=== PATIENT | male | born 1945 | race Caucasian/White ===

== ENCOUNTER 2017-05-03 11:45 | Emergency (ER) | payer MEDICARE, MEDICAID ==
[2017-05-03 13:06] VITALS: BP 132/68
--- NOTE | 2017-05-03 13:44 | UC ---
Serafin Sanchez Angela, scribed for Bettie Christianson MD on 05/03/17 at 1325 . Skin Complaint HPI - HPI Summary HPI Summary: This pt is a 72 y/o male accompanied by caregiver presenting to [facility] c/o swollen upper lip upon waking up today (per caregiver). Pt also has scattered scabs on arms due to picking his own skin. Per caregiver, pt is eating and drinking well. Per caregiver, pt's upper lip was normal looking last night and there is no trauma that she knows of associated. Caregiver reports that pt often bites his lower lip and is swollen due to this. Caregiver denies pt has swallowing problems. Pt is from [employer]. Per caregiver, pt's medications are for behavior. Pt takes Tylenol TID. NKDA. HPI is limited due to level 5 caveat - pt has MR. - History of Current Complaint Chief Complaint: MARYLUkin Stated Complaint: SWOLLEN MOUTH Hx Obtained From: Family/Exploration Geologist - caregiver Hx From Patient Unobtainable Due To: Other - pt has MR Onset/Duration: Lasting Hours Skin Exposure Onset/Duration: Hours Ago Location: Other - upper lip Character: Swelling, Redness Associated Signs & Symptoms: Negative: Fever, Chills - Allergy/Home Medications Allergies/Adverse Reactions: Allergies Allergy/AdvReac Type Severity Reaction Status Date / Time No Known Allergies Allergy Verified 05/03/17 13:06 Home Medications: Home Medications Silver Sulfadiazine 1%* [SILVadine 1%*] 1 applic TOPICAL QID PRN 05/03/17 [ History Confirmed 05/03/17] Zinc Oxide (Topical) [Dr Torres Rash + Skin] 10 % TOPICAL PRN 05/03/17 [History] Review of Systems Constitutional: Negative, Other - eating and drinking well despite lip swelling. Skin: Other - swollen upper lip many areas on skin of forearms with deep crusts secondary to repeated picking. Eyes: Negative ENT: Negative Respiratory: Negative Cardiovascular: Negative Gastrointestinal: Negative Genitourinary: Negative Motor: Negative Neurovascular: Negative Musculoskeletal: Negative Neurological: Negative Psychological: Negative All Other Systems Reviewed And Are Negative: Yes - Comments Additional Review of Systems Comments: ROS is limited due to level 5 caveat - pt has MR. 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 ULCER SURGERY (MANY YRS AGO). HAS HAD BOTH FEMORS FX'D W/ PLATES. vagotomy/antrectomy. 2009 right hip. 2010 left hip. 2014 fx left metatarsal - Family History Known Family History: Positive: Unknown - due to being averbal, [facility] associated not aware of FH Family History: family history is unknown. patient is from [facility]. - Social History Occupation: Disabled Lives: [facility]iary Alcohol Use: None Substance Use Type: None Smoking Status (MU): Never Smoked Tobacco - Immunization History Most Recent Influenza Vaccination: 2015 Most Recent Tetanus Shot: 2009 Most Recent Pneumonia Vaccination: 2009 Physical Exam Triage Information Reviewed: Yes Appearance: Well-Nourished, Pain Distress - mildly uncomfortable., Other: - averbal. Vital Signs: Initial Vital Signs Temp 98.1 F 05/03/17 13:01 Resp 16 05/03/17 13:01 BP 132/68 05/03/17 13:01 Pulse Ox 100 05/03/17 13:01 Vital Signs Reviewed: Yes Eye Exam: Other - left ptosis (chronic) Eyes: Positive: Conjunctiva Clear ENT: Positive: Other: - upper lip swelling right > left with small hematoma on the right. Upper lip swelling to the nares. Upper lip mucosal membrane abraded over 2 cm x .5 cm area, with debris. Teeth with deep caries and gingival swelling. Dental: Positive: Gross Decay/Caries @ - throughout, many absent teeth. Neck: Positive: Supple, Nontender, No Lymphadenopathy Respiratory: Positive: Lungs clear, Normal breath sounds Cardiovascular: Positive: RRR, No Murmur Neurological Exam: Other - walker assisted gait. Neurological: Positive: Alert, Other: - averbal. Psychological Exam: Other - mildly irritable. Skin: Positive: Other - many crusts on both arms, no cellulitis. Course/Dx - Course Course Of Treatment: Pt is a 72 y/o male accompanied by caregiver presenting to [facility] c/o swollen upper lip upon waking up today (per caregiver). Pt medications reviewed this visit. - Differential Diagnoses - Skin Complaint Differential Diagnoses: Abscess, Allergic Reaction, Angioedema, Other - trauma/ hematoma - Diagnoses Provider Diagnoses: right upper lip hematoma, likely dental abscess. Discharge - Discharge Plan Condition: Stable Disposition: HOME Prescriptions: Penicillin VK 500 MG TAB(NF) [Penicillin VK 500 mg Tab] 500 mg PO QID #28 tab Patient Education Materials: Dental Abscess (ED) Referrals: Harriet Serrano MD [Primary Care Provider] - Additional Instructions: The upper lip swelling could be from trauma, and there is evidence of a hematoma in the lip. However, there is an area in the upper inner lip which is deeply abraded, and the condition of upper gums and teeth are poor, raising the likelihood of dental abscess and infection. Begin use of pen VK today. If at all possible, compress the upper lip with cool cloths or ice to decrease swelling. There should be some decrease in swelling within 48 hours, although I suspect that the hematoma will be slower to improve. Follow up if you are not seeing any improvement after 48 hours. The documentation as recorded by the Serafin lewis Angela accurately reflects the service I personally performed and the decisions made by me, Bettie Christianson MD.
== END 2017-05-03 13:41 | disposition home or self-care (01) ==
LOC: UCEAST 11:45
DX: S00.531A Contusion of lip, initial encounter (principal); X58.XXXA Exposure to other specified factors, initial encounter; Y93.9 Activity, unspecified; Y92.9 Unspecified place or not applicable; Y99.9 Unspecified external cause status
CPT/HCPCS: 99212; G0463

== ENCOUNTER 2017-08-02 12:36 | Emergency (ER) | payer MEDICARE, MEDICAID ==
--- NOTE | 2017-08-02 12:48 | UC ---
Skin Complaint HPI - HPI Summary HPI Summary: 72 year old male with skin concern . Swelling under L eye and L jaw starting this morning; per caregiver, swelling was worse this morning. Patient is non verbal. No other concerns. [ End ] - History of Current Complaint Time Seen by Provider: 08/02/17 12:46 Stated Complaint: SWOLLEN FACE Hx Obtained From: Family/Cardiology Nurse Practitioner Onset/Duration: Gradual Onset Timing: Constant Aggravating Factor(s): Nothing Alleviating Factor(s): Nothing - Allergy/Home Medications Allergies/Adverse Reactions: Allergies Allergy/AdvReac Type Severity Reaction Status Date / Time No Known Allergies Allergy Verified 08/02/17 12:49 Review of Systems Skin: Other - left lower eye lid redness and swelling Is Patient Immunocompromised?: No All Other Systems Reviewed And Are Negative: Yes PMH/Surg Hx/FS Hx/Imm Hx Previously Healthy: Yes Psychological History: Anxiety, Depression, Bipolar Disorder - Surgical History Surgical History: Yes Surgery Procedure, Year, and Place: right hip pinning. ULCER SURGERY (MANY YRS AGO). HAS HAD BOTH FEMORS FX'D W/ PLATES. vagotomy/antrectomy. 2009 right hip. 2010 left hip. 2014 fx left metatarsal - Family History Known Family History: Positive: Unknown - due to being averbal, [facility] associated not aware of FH Family History: family history is unknown. patient is from [facility]. - Social History Occupation: Unemployed Lives: Custodial Alcohol Use: None Substance Use Type: None Smoking Status (MU): Never Smoked Tobacco - Immunization History Most Recent Influenza Vaccination: 2015 Most Recent Tetanus Shot: 2009 Most Recent Pneumonia Vaccination: 2009 Physical Exam Triage Information Reviewed: Yes Appearance: Well-Appearing, No Pain Distress, Well-Nourished Vital Signs Reviewed: Yes Eye Exam: Normal Eyes: Positive: Conjunctiva Clear ENT: Positive: Hearing grossly normal Neck: Positive: 1 Respiratory Exam: Normal Cardiovascular Exam: Normal Musculoskeletal Exam: Normal Psychological Exam: Normal Skin Exam: Normal Skin: Positive: Other - left eye lid inferior with redness and swelling present with some erythema. not circumferential. mild upper eye lid swelling present . allergic shiner present as well Course/Dx - Course Course Of Treatment: Treat with antibiotics at this time. If redness spreads, fever develops, eye pain (hard to eval d/t pt non verbal) then to go to ED . In office setting he is moving eye without difficulty . Not circumferential just inferior aspect of eye lid / preseptal area - Diagnoses Provider Diagnoses: Preseptal cellulitis left eye Discharge - Discharge Plan Condition: Good Disposition: HOME Referrals: Harriet Serrano MD [Primary Care Provider] -
[2017-08-02 12:49] VITALS: BP 134/82
[2017-08-02] MEDS ORDERED: Clindamycin CAP* 150 MG PO ONE (13:05)
[2017-08-02] MEDS ORDERED: Clindamycin CAP* 150 MG ONE (13:09)
== END 2017-08-02 13:23 | disposition home or self-care (01) ==
LOC: UCEAST 12:36
DX: L03.213 Periorbital cellulitis (principal)
CPT/HCPCS: 99212; A9270-GY; G0463

== ENCOUNTER 2017-09-07 09:41 | Emergency (ER) | payer MEDICARE, MEDICAID ==
[2017-09-07 09:50] VITALS: BP 166/79
--- NOTE | 2017-09-07 10:33 | UC ---
Skin Complaint HPI - HPI Summary HPI Summary: Patient presents from alf with his home health aide present who provides the history. Patient has MR and does not communicate well. He has a nervous habit of picking at his skin, and does so mostly at night-time. He has been picking at his left upper arm, and now he has an open area, that is red, inflamed and they want it checked out. They do apply dressing but he takes them off as well. He is otherwise acting per his norm, no reported fevers, drainage from the open skin, signs of discomfort from staff. - History of Current Complaint Chief Complaint: UCSkin Time Seen by Provider: 09/07/17 10:13 Stated Complaint: SORE ON ARM Hx Obtained From: Family/Technical Support Internship Onset/Duration: Lasting Days Skin Exposure Onset/Duration: Days Ago Onset Severity: Mild Current Severity: Mild Pain Intensity: 0 Character: Redness Aggravating Factor(s): Nothing Alleviating Factor(s): Nothing Associated Signs & Symptoms: Positive: Negative - Allergy/Home Medications Allergies/Adverse Reactions: Allergies Allergy/AdvReac Type Severity Reaction Status Date / Time No Known Allergies Allergy Verified 09/07/17 09:50 Review of Systems Constitutional: Negative Skin: Other - open area of left upper arm, with increased redness today. no reported drainage. Eyes: Negative ENT: Negative Respiratory: Negative Cardiovascular: Negative Gastrointestinal: Negative Genitourinary: Negative Motor: Negative Neurovascular: Negative Musculoskeletal: Negative Neurological: Negative Psychological: Negative All Other Systems Reviewed And Are Negative: Yes PMH/Surg Hx/FS Hx/Imm Hx Previously Healthy: Yes - Surgical History Surgical History: Yes Surgery Procedure, Year, and Place: right hip pinning. ULCER SURGERY (MANY YRS AGO). HAS HAD BOTH FEMORS FX'D W/ PLATES. vagotomy/antrectomy. 2009 right hip. 2010 left hip. 2014 fx left metatarsal - Family History Known Family History: Positive: Unknown - due to being averbal, alf associated not aware of FH Family History: family history is unknown. patient is from [facility]. - Social History Occupation: Disabled Lives: Assisted Alcohol Use: None Substance Use Type: None Smoking Status (MU): Never Smoked Tobacco - Immunization History Most Recent Influenza Vaccination: 2016 Most Recent Tetanus Shot: 2009 Most Recent Pneumonia Vaccination: 2009 Physical Exam Triage Information Reviewed: Yes Appearance: Well-Appearing Vital Signs: Initial Vital Signs Temp 97.5 F 09/07/17 09:46 Pulse 86 09/07/17 09:46 Resp 18 09/07/17 09:46 BP 166/79 09/07/17 09:46 Pulse Ox 99 09/07/17 09:46 Vital Signs Reviewed: Yes Eye Exam: Normal ENT Exam: Normal Neck exam: Normal Neck: Positive: 1 Respiratory Exam: Normal Cardiovascular Exam: Normal Musculoskeletal Exam: Normal Neurological Exam: Normal Skin Exam: Other - left upper outter arm with a inflammed open area approximately 3.0 cm x 2.0 cm superfical involving the epithelial tissue only. no flucuance. no drainage noted. irregular borders. Course/Dx - Course Course Of Treatment: Patient presents with a PMH of MR and lives at a alf , he has a habit of picking at his skin and presents with a superficial open area on his left upper deltoid arm area. It appears inflamed and irriatated. I recommend they apply topical bacitacin three times daily and he will be given augmentin 500 mg twice daily for 10 days as well. I did recommend they try to keep it covered as well. The INSIDE STEWARD/STEWARDESS verbalized understanding of and was in agreement with the discharge plan. - Differential Diagnoses - Skin Complaint Differential Diagnoses: Other - acute wound cellulitis - Diagnoses Provider Diagnoses: acute wound. cellullitis Discharge - Discharge Plan Condition: Stable Disposition: HOME Prescriptions: Amoxicillin/Clavulanate TAB* [Augmentin TAB 500 mg*] 500 mg PO BID #20 tab Bacitracin OPHTH.OINT* 1 applic .SEE ORDER TID #1 oint Patient Education Materials: Wound Infection (DC), Cellulitis (DC), Acute Wound Care (ED) Referrals: Harriet Serrano MD [Primary Care Provider] -
== END 2017-09-07 10:41 | disposition home or self-care (01) ==
LOC: UCEAST 09:41
DX: L03.114 Cellulitis of left upper limb (principal)
CPT/HCPCS: 99211; G0463

== ENCOUNTER 2019-03-02 14:43 | Emergency (ER) | payer MEDICARE, MEDICAID ==
[2019-03-02 15:21] VITALS: BP 196/80
--- NOTE | 2019-03-02 15:27 | UC ---
Hand/Wrist HPI - HPI Summary HPI Summary: 73 yo male presents via tank erector. He is in a senior living and largely non- verbal. Tip Banding Machine Operator tells me that pt was at a day camp today and they noticed his right index finger was red, swollen, and hot - they were concerned and contacted the senior living's RN. The nurse examined the area and did not notice any redness, swelling, or warmth - but there was a slight bruise. Pt is here for further eval of the area. Has been acting his normal self and does not seem bothered by the area - per staff. - History Of Current Complaint Chief Complaint: UCUpperExtremity Stated Complaint: FINGER INJURY Time Seen by Provider: 03/02/19 15:26 Hx Obtained From: Family/Tip Banding Machine Operator Hx From Patient Unobtainable Due To: Altered Mental Status Severity Currently: None Pain Intensity: 0 - Allergies/Home Medications Allergies/Adverse Reactions: Allergies Allergy/AdvReac Type Severity Reaction Status Date / Time No Known Allergies Allergy Verified 03/02/19 15:21 Home Medications: Home Medications Calcium Carbonate/Vitamin D3 [Calcium 500 + Vit D Caplet] 1 tab PO DAILY [History Confirmed 03/02/19] PMH/Surg Hx/FS Hx/Imm Hx - Additional Past Medical History Additional PMH: Mentally disabled - Surgical History Surgical History: Yes Surgery Procedure, Year, and Place: right hip pinning. ULCER SURGERY (MANY YRS AGO). HAS HAD BOTH FEMORS FX'D W/ PLATES. vagotomy/antrectomy. 2009 right hip. 2010 left hip. 2014 fx left metatarsal - Family History Known Family History: Positive: Unknown - due to being averbal, senior living associated not aware of FH Family History: family history is unknown. patient is from senior living. - Social History Lives: Prison Alcohol Use: None Substance Use Type: None Smoking Status (MU): Never Smoked Tobacco - Immunization History Most Recent Influenza Vaccination: 2016 Most Recent Tetanus Shot: 2009 Most Recent Pneumonia Vaccination: 2009 Review of Systems All Other Systems Reviewed And Are Negative: Yes Constitutional: Positive: Negative Skin: Positive: Other - Right index finger bruise Respiratory: Positive: Negative Cardiovascular: Positive: Negative Musculoskeletal: Positive: Negative Neurological: Positive: Negative Psychological: Positive: Negative Physical Exam - Summary Physical Exam Summary: GENERAL: NAD. WDWN. No pain distress. SKIN: Right index finger: overlying the proximal phalanx there is a faint ecchymosis. No open wound, erythema, edema, or warmth. CHEST: No accessory muscle use. Breathing comfortably and in no distress. CV: Pulses intact radial and ulnar. Cap refill <2seconds MSK: FROM right index finger MCP, PIP, and DIP. Strength 5/5 including controls technician strength. Triage Information Reviewed: Yes Vital Signs: Initial Vital Signs Temp 98.4 F 03/02/19 15:15 Pulse 67 03/02/19 15:15 Resp 16 03/02/19 15:15 BP 196/80 03/02/19 15:15 Pulse Ox 98 03/02/19 15:15 Vital Signs Reviewed: Yes Hand/Wrist Course/Dx - Course Course Of Treatment: XR: IMPRESSION: 1. OSTEOPENIA. 2. 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 Pt does not seem bothered by this. Recommended to monitor the area, watchful waiting, and if symptoms worsen or change to be rechecked. I suspect this will resolve without intervention. - Differential Dx/Diagnosis Provider Diagnosis: Contusion, finger Discharge - Sign-Out/Discharge Documenting (check all that apply): Patient Departure All imaging exams completed and their final reports reviewed: Yes - Discharge Plan Condition: Stable Disposition: HOME Referrals: Harriet Serrano MD [Primary Care Provider] - Additional Instructions: If you develop a fever, shortness of breath, chest pain, new or worsening symptoms - please call your PCP or go to the ED immediately. Your blood pressure was high at todays visit. Please see your primary provider within 4 weeks for recheck and re-evaluation. The area on Prince's finger appears to be a mild bruise. He does not seem bothered by this and there are no signs of infection. Please monitor the area and if there are any changes such as increased warmth, redness, swelling, or pain to be rechecked - Billing Disposition and Condition Condition: STABLE Disposition: Home
== END 2019-03-02 16:08 | disposition home or self-care (01) ==
LOC: UCEAST 14:43
DX: S60.021A Contusion of right index finger without damage to nail, initial encounter (principal); X58.XXXA Exposure to other specified factors, initial encounter; Y92.9 Unspecified place or not applicable; F79 Unspecified intellectual disabilities
CPT/HCPCS: 73140; 99212; G0463

== ENCOUNTER 2023-08-05 07:55 | Inpatient (IN) ==
[2023-08-05] MEDS ORDERED: EPINEPHrine,Rac 2.25% NEB.SOL 0.5 ML ONE (08:02)
[2023-08-05] MEDS: Dexamethasone IV 4 MG/ML VIAL 1 ml VIAL IV SLOW PU ONE (08:09)
[2023-08-05 08:18] LABS: ABS Eosinophils 0.2 10^3/uL (0.0-0.5); ABS Lymphocytes 0.5 10^3/uL (1.0-4.8); ABS Monocytes 0.5 10^3/uL (0.0-1.1); ABS Neutrophils 5.6 10^3/uL (1.5-7.6); ABS Nucleated RBC 0.01 10^3/ul; Eosinophil % 3.1 %; Hematocrit 40.5 % (38-53); Hemoglobin 13.8 g/dL (13.2-16.3); Lymphocyte % 7.4 %; Mean Corpuscular Hemoglobin 31.7 pg (27-33); Mean Corpuscular Hgb Conc 34.1 g/dL (31-36); Mean Corpuscular Volume 92.9 fL (80-97); Mean Platelet Volume 7.4 fL (7.5-11.2); Nucleated Red Blood Cells % 0.1 %/100WBC (0.0-0.8); Platelet Count 349 10^3/uL (150-450); Red Blood Count 4.35 10^6/uL (4.06-5.63); Red Cell Distribution Width 13.8 % (12-17); White Blood Count 6.8 10^3/uL (3.6-10.2)
[2023-08-05] MEDS ORDERED: Acetylcysteine INH SOL (RT) 200 MG/ML 4 ML VIAL INH ONE (08:18)
[2023-08-05] MEDS ORDERED: Albuterol/Ipratropium NEB.SOL (2.5/0.5 MG) 3 ML NEB.SOLN ONE (08:18)
[2023-08-05] MEDS: Lactated Ringers 1000 ml BAG 1,000 ML IV ONE (08:26)
[2023-08-05] MEDS ORDERED: Propofol 10 mg/ml 100 ML BTL 0 MG/0 ML BTL ONE (08:33)
[2023-08-05] MEDS ORDERED: Succinylcholine 200 mg VIAL 20 mg/ml 10 ml VIAL (200 mg) ONE (08:33)
[2023-08-05] MEDS ORDERED: Rocuronium 50 mg VIAL 10 mg/ml 5 ml VIAL (50 mg) ONE (08:33)
[2023-08-05 08:50] LABS: ALT 22 U/L (7-52); Albumin 3.7 g/dL (3.2-5.2); Alkaline Phosphatase 278 U/L (35-149); Blood Urea Nitrogen 10 mg/dL (6-24); C Reactive Protein 60.69 mg/L (<8.01); CO2 Carbon Dioxide 28 mmol/L (22-32); Calcium 8.9 mg/dL (8.6-10.3); Chloride 94 mmol/L (101-111); Globulin 3.7 g/dL (2-4); Glucose 113 mg/dL (70-100); Sodium 130 mmol/L (135-145); Total Bilirubin 0.5 mg/dL (0.2-1.0); Total Protein 7.4 g/dL (6.4-8.9); eGFR CKD-EPI 104.4 (>60)
[2023-08-05 08:53] LABS: Anion Gap 8 mmol/L (2-16)
[2023-08-05] MEDS: Acetylcysteine INHALATION SOL 200 MG/ML NEB.SOLN 10 ML INH ONE (09:18)
[2023-08-05] MEDS: EPINEPHrine,Rac 2.25% NEB.SOL 0.5 ML INH ONE (09:18)
[2023-08-05] MEDS: Glycopyrrolate IV 0.2 MG/ML 20 ML VIAL IV SLOW PU ONE (09:40)
[2023-08-05] MEDS ORDERED: Lidocaine 1% VIAL 10 MG/ML 30 ML VIAL ONE (09:40)
[2023-08-05] MEDS ORDERED: Midazolam 2 mg/2 ml VIAL 1 mg/ml 2 ml VIAL (2 mg) ONE (10:08)
[2023-08-05] MEDS ORDERED: KETAMINE HCL 10 MG/ML 20 ml VIAL (200 MG) ONE (10:08)
[2023-08-05] MEDS ORDERED: Propofol 10 MG/ML 20 ML BTL ONE (10:09)
[2023-08-05] MEDS ORDERED: Lidocaine 2% PF 5 ML VIAL ONE (10:09)
[2023-08-05] MEDS ORDERED: Lidocaine 1% w EPI 1:200,000 SDV 30 ML VIAL ONE (10:24)
[2023-08-05] MEDS ORDERED: Phenylephrine 40 mcg/mL 10mL (400mcg) SYRINGE ONE (11:09)
[2023-08-05] MEDS: NS 0.9% 1000 ml BAG 1,000 ML IV SCH ×2 (12:12→22:41)
[2023-08-05 13:13] LABS: Urine Appearance Clear; Urine Bilirubin Negative (Negative); Urine Blood 1+ (Negative); Urine Color Straw; Urine Glucose Negative (Negative); Urine Ketones Negative (Negative); Urine Nitrite Negative (Negative); Urine Protein Negative (Negative); Urine Specific Gravity 1.005 (1.002-1.030); Urine Urobilinogen Negative (Negative)
[2023-08-05 13:25] LABS: Urine Bacteria 1+ (Absent); Urine Red Blood Cell 2+(6-10/hpf) (Absent); Urine White Blood Cell Trace(0-5/hpf) (Absent)
[2023-08-05] MEDS: Enoxaparin 40 MG/0.4 ML SYR SUBCUT SCH (14:38)
[2023-08-05] MEDS: Pantoprazole VIAL 40 MG VIAL IV SCH (14:38)
[2023-08-06] MEDS: Morphine 2 MG/ML SYRINGE IV PRN (02:42)
[2023-08-06] MEDS: Metoprolol Tartrate 5 mg VIAL 5 ml VIAL (1 mg/ml) IV PRN (02:53)
[2023-08-06] MEDS: Metoprolol Tartrate 5 mg VIAL 5 ml VIAL (1 mg/ml) ONE (03:16)
[2023-08-06] MEDS: Chlorhexidine MOUTHWASH 0.12% 15 ML UDC TOPICAL SCH (03:58)
[2023-08-06 04:57] LABS: ABS Lymphocytes 0.6 10^3/uL (1.0-4.8); ABS Monocytes 0.8 10^3/uL (0.0-1.1); ABS Neutrophils 7.4 10^3/uL (1.5-7.6); Eosinophil % 0.1 %; Hematocrit 33.3 % (38-53); Hemoglobin 11.2 g/dL (13.2-16.3); Lymphocyte % 6.3 %; Mean Corpuscular Hemoglobin 31.1 pg (27-33); Mean Corpuscular Hgb Conc 33.5 g/dL (31-36); Mean Corpuscular Volume 92.7 fL (80-97); Mean Platelet Volume 7.3 fL (7.5-11.2); Platelet Count 330 10^3/uL (150-450); Red Blood Count 3.59 10^6/uL (4.06-5.63); Red Cell Distribution Width 13.3 % (12-17); White Blood Count 8.8 10^3/uL (3.6-10.2)
[2023-08-06 05:13] LABS: Calcium 8.1 mg/dL (8.6-10.3); Creatinine, Serum 0.61 mg/dL (0.67-1.17); Magnesium 1.9 mg/dL (1.9-2.7); Potassium 4.1 mmol/L (3.5-5.0); Total Bilirubin 0.5 mg/dL (0.2-1.0); eGFR CKD-EPI 98.3 (>60)
[2023-08-06] MEDS: Polyethylene Glycol 3350 17 GM PACKET PO SCH (08:34)
[2023-08-07 04:36] LABS: ABS Basophils 0.1 10^3/uL (0.0-0.1); ABS Lymphocytes 0.6 10^3/uL (1.0-4.8); ABS Monocytes 0.7 10^3/uL (0.0-1.1); ABS Neutrophils 9.1 10^3/uL (1.5-7.6); Eosinophil % 0.1 %; Hematocrit 33.1 % (38-53); Hemoglobin 11.3 g/dL (13.2-16.3); Lymphocyte % 5.5 %; Mean Corpuscular Hemoglobin 31.5 pg (27-33); Mean Corpuscular Hgb Conc 34.1 g/dL (31-36); Mean Corpuscular Volume 92.2 fL (80-97); Mean Platelet Volume 7.3 fL (7.5-11.2); Platelet Count 281 10^3/uL (150-450); Red Blood Count 3.59 10^6/uL (4.06-5.63); Red Cell Distribution Width 13.8 % (12-17); White Blood Count 10.4 10^3/uL (3.6-10.2)
[2023-08-07 05:14] LABS: Creatinine, Serum 0.48 mg/dL (0.67-1.17); Potassium 3.7 mmol/L (3.5-5.0); eGFR CKD-EPI 105.7 (>60)
[2023-08-08 06:08] LABS: ABS Eosinophils 0.2 10^3/uL (0.0-0.5); ABS Lymphocytes 0.6 10^3/uL (1.0-4.8); ABS Monocytes 0.6 10^3/uL (0.0-1.1); ABS Neutrophils 8.4 10^3/uL (1.5-7.6); Eosinophil % 1.6 %; Hematocrit 34.3 % (38-53); Hemoglobin 11.4 g/dL (13.2-16.3); Lymphocyte % 6.2 %; Mean Corpuscular Hemoglobin 30.8 pg (27-33); Mean Corpuscular Hgb Conc 33.2 g/dL (31-36); Mean Platelet Volume 7.8 fL (7.5-11.2); Platelet Count 276 10^3/uL (150-450); Red Blood Count 3.69 10^6/uL (4.06-5.63); Red Cell Distribution Width 13.6 % (12-17); White Blood Count 9.8 10^3/uL (3.6-10.2)
[2023-08-08 06:27] LABS: Calcium 8.2 mg/dL (8.6-10.3); Creatinine, Serum 0.47 mg/dL (0.67-1.17); Potassium 3.8 mmol/L (3.5-5.0); eGFR CKD-EPI 106.4 (>60)
[2023-08-08] MEDS: cefTRIAXone 1 gm/50 mL D5W 1 GM/50 ML BAG IV SCH (11:39)
[2023-08-08] MEDS: Iohexol 350 (CONTRAST) 500 ML MDV IV ONE (18:23)
[2023-08-09] MEDS: NS 0.9% 500 ml BAG 500 ML IV ONE (01:15)
[2023-08-09 06:31] LABS: ABS Eosinophils 0.4 10^3/uL (0.0-0.5); ABS Lymphocytes 0.6 10^3/uL (1.0-4.8); ABS Monocytes 0.7 10^3/uL (0.0-1.1); ABS Neutrophils 7.3 10^3/uL (1.5-7.6); ABS Nucleated RBC 0.01 10^3/ul; Eosinophil % 4.3 %; Hematocrit 29.9 % (38-53); Lymphocyte % 6.2 %; Mean Corpuscular Hemoglobin 31.3 pg (27-33); Mean Corpuscular Hgb Conc 33.6 g/dL (31-36); Mean Corpuscular Volume 93.2 fL (80-97); Mean Platelet Volume 7.8 fL (7.5-11.2); Nucleated Red Blood Cells % 0.1 %/100WBC (0.0-0.8); Platelet Count 280 10^3/uL (150-450); Red Cell Distribution Width 13.7 % (12-17)
[2023-08-09 06:50] LABS: Albumin 2.6 g/dL (3.2-5.2); Albumin/Globulin Ratio 0.9 (1-3); Calcium 7.7 mg/dL (8.6-10.3); Creatinine, Serum 0.43 mg/dL (0.67-1.17); Potassium 3.8 mmol/L (3.5-5.0); Total Bilirubin 0.4 mg/dL (0.2-1.0); Total Protein 5.6 g/dL (6.4-8.9); eGFR CKD-EPI 109.3 (>60)
[2023-08-09] MEDS ORDERED: oxyCODONE 5 mg/5 ml ORAL.SOLN UDC PO PRN (15:18)
[2023-08-09] MEDS: oxyCODONE 5 mg/5 ml ORAL.SOLN UDC PO SCH (17:01)
[2023-08-09] MEDS: Citalopram SOLN ORALSYR 2 MG/ML G TUBE SCH (22:05)
[2023-08-10] MEDS: Polyethyl Glycol/Propylene Gly OPHTH.SOLN BOTH EYES SCH (17:32)
[2023-08-11 07:14] LABS: Mean Corpuscular Hgb Conc 33.4 g/dL (31-36); Mean Corpuscular Volume 92.8 fL (80-97); Mean Platelet Volume 7.8 fL (7.5-11.2); Platelet Count 338 10^3/uL (150-450); Red Blood Count 3.56 10^6/uL (4.06-5.63); Red Cell Distribution Width 13.5 % (12-17); White Blood Count 8.1 10^3/uL (3.6-10.2)
[2023-08-11 08:00] LABS: Calcium 7.8 mg/dL (8.6-10.3); Creatinine, Serum 0.47 mg/dL (0.67-1.17); Potassium 4.2 mmol/L (3.5-5.0); eGFR CKD-EPI 106.4 (>60)
[2023-08-11] MEDS ORDERED: diazePAM INJ CARPUJECT 5 MG/ML SYRINGE IV PRN (08:47)
[2023-08-12 09:36] LABS: Hematocrit 34.8 % (38-53); Hemoglobin 11.7 g/dL (13.2-16.3); Mean Corpuscular Hemoglobin 31.2 pg (27-33); Mean Corpuscular Hgb Conc 33.6 g/dL (31-36); Mean Corpuscular Volume 93.1 fL (80-97); Mean Platelet Volume 7.8 fL (7.5-11.2); Platelet Count 391 10^3/uL (150-450); Red Blood Count 3.74 10^6/uL (4.06-5.63); Red Cell Distribution Width 13.5 % (12-17); White Blood Count 7.8 10^3/uL (3.6-10.2)
[2023-08-12 09:56] LABS: Creatinine, Serum 0.52 mg/dL (0.67-1.17); Potassium 4.3 mmol/L (3.5-5.0); eGFR CKD-EPI 103.2 (>60)
[2023-08-12] MEDS: Midazolam 2 mg/2 ml VIAL 1 mg/ml 2 ml VIAL (2 mg) ONE (11:38)
[2023-08-12] MEDS: fentaNYL 100 mcg/2 ml 50 MCG/ML VIAL ONE (11:38)
[2023-08-13 05:41] LABS: ABS Eosinophils 0.3 10^3/uL (0.0-0.5); ABS Monocytes 0.8 10^3/uL (0.0-1.1); ABS Neutrophils 4.9 10^3/uL (1.5-7.6); Eosinophil % 4.7 %; Hematocrit 34.3 % (38-53); Hemoglobin 11.3 g/dL (13.2-16.3); Lymphocyte % 13.7 %; Mean Corpuscular Hemoglobin 30.8 pg (27-33); Mean Corpuscular Hgb Conc 32.9 g/dL (31-36); Mean Corpuscular Volume 93.5 fL (80-97); Mean Platelet Volume 8.6 fL (7.5-11.2); Nucleated Red Blood Cells % 0.1 %/100WBC (0.0-0.8); Platelet Count 421 10^3/uL (150-450); Red Blood Count 3.66 10^6/uL (4.06-5.63); Red Cell Distribution Width 13.6 % (12-17)
[2023-08-13 05:46] LABS: Albumin 2.8 g/dL (3.2-5.2); Albumin/Globulin Ratio 0.8 (1-3); Creatinine, Serum 0.5 mg/dL (0.67-1.17); Globulin 3.4 g/dL (2-4); Potassium 4.2 mmol/L (3.5-5.0); Total Bilirubin 0.5 mg/dL (0.2-1.0); Total Protein 6.2 g/dL (6.4-8.9); eGFR CKD-EPI 104.4 (>60)
[2023-08-15] MEDS: methylPREDNISolone SOD SUCC 40 mg/ml 1 ml VIAL IV ONE (02:25)
[2023-08-15 09:07] LABS: ABS Lymphocytes 0.3 10^3/uL (1.0-4.8); ABS Monocytes 0.2 10^3/uL (0.0-1.1); ABS Neutrophils 8.7 10^3/uL (1.5-7.6); Eosinophil % 0.1 %; Hematocrit 34.7 % (38-53); Hemoglobin 11.4 g/dL (13.2-16.3); Lymphocyte % 3.8 %; Mean Corpuscular Hemoglobin 30.9 pg (27-33); Mean Corpuscular Hgb Conc 32.7 g/dL (31-36); Mean Corpuscular Volume 94.4 fL (80-97); Mean Platelet Volume 7.7 fL (7.5-11.2); Platelet Count 471 10^3/uL (150-450); Red Blood Count 3.68 10^6/uL (4.06-5.63); Red Cell Distribution Width 13.5 % (12-17); White Blood Count 9.3 10^3/uL (3.6-10.2)
[2023-08-15 09:20] LABS: Albumin/Globulin Ratio 0.8 (1-3); Calcium 8.1 mg/dL (8.6-10.3); Creatinine, Serum 0.44 mg/dL (0.67-1.17); Globulin 3.6 g/dL (2-4); Magnesium 2.3 mg/dL (1.9-2.7); Potassium 4.6 mmol/L (3.5-5.0); Total Bilirubin 0.5 mg/dL (0.2-1.0); Total Protein 6.6 g/dL (6.4-8.9); eGFR CKD-EPI 108.5 (>60)
[2023-08-15] MEDS ORDERED: Triamcinolone Acetonide 40 mg VIAL 40 mg/ml 1 ml VIAL ONE (13:58)
[2023-08-15] MEDS ORDERED: Lidocaine 1% w EPI 1:200,000 SDV 30 ML VIAL ONE (13:59)
[2023-08-15] MEDS ORDERED: Midazolam 2 mg/2 ml VIAL 1 mg/ml 2 ml VIAL (2 mg) ONE (14:15)
[2023-08-15] MEDS ORDERED: fentaNYL 100 mcg/2 ml 50 MCG/ML VIAL ONE (14:15)
[2023-08-15] MEDS: Oral Rinse (Biotene)(NF) 237 ML or 473 ML ORAL RINSE BTL MT SCH (18:39)
[2023-08-16 06:17] LABS: ABS Eosinophils 0.1 10^3/uL (0.0-0.5); ABS Lymphocytes 0.6 10^3/uL (1.0-4.8); ABS Monocytes 0.8 10^3/uL (0.0-1.1); ABS Neutrophils 8.9 10^3/uL (1.5-7.6); Eosinophil % 0.8 %; Hematocrit 30.5 % (38-53); Hemoglobin 10.4 g/dL (13.2-16.3); Lymphocyte % 5.9 %; Mean Corpuscular Hemoglobin 31.9 pg (27-33); Mean Corpuscular Hgb Conc 34.2 g/dL (31-36); Mean Corpuscular Volume 93.4 fL (80-97); Mean Platelet Volume 8.2 fL (7.5-11.2); Platelet Count 498 10^3/uL (150-450); Red Blood Count 3.27 10^6/uL (4.06-5.63); Red Cell Distribution Width 13.5 % (12-17); White Blood Count 10.4 10^3/uL (3.6-10.2)
[2023-08-16 06:33] LABS: Calcium 7.9 mg/dL (8.6-10.3); Creatinine, Serum 0.47 mg/dL (0.67-1.17); Magnesium 2.3 mg/dL (1.9-2.7); Potassium 4.3 mmol/L (3.5-5.0); eGFR CKD-EPI 106.4 (>60)
[2023-08-16 06:47] LABS: TSH Ultra Thyroid Stim Horm 4.7 mcIU/mL (0.34-5.60)
[2023-08-16] MEDS: methylPREDNISolone SOD SUCC 40 mg/ml 1 ml VIAL IV ONE (17:45)
[2023-08-16] MEDS ORDERED: Lorazepam PYXIS KEY PRN (21:06)
[2023-08-17] MEDS: LORazepam 2 mg VIAL 1 ml IV PUSH PRN (05:17)
[2023-08-17 07:58] LABS: Hematocrit 33.4 % (38-53); Hemoglobin 10.9 g/dL (13.2-16.3); Mean Corpuscular Hemoglobin 30.5 pg (27-33); Mean Corpuscular Hgb Conc 32.7 g/dL (31-36); Mean Corpuscular Volume 93.4 fL (80-97); Mean Platelet Volume 7.7 fL (7.5-11.2); Platelet Count 550 10^3/uL (150-450); Red Blood Count 3.57 10^6/uL (4.06-5.63); Red Cell Distribution Width 13.5 % (12-17); White Blood Count 10.2 10^3/uL (3.6-10.2)
[2023-08-17 08:33] LABS: Calcium 7.9 mg/dL (8.6-10.3); Creatinine, Serum 0.46 mg/dL (0.67-1.17); Magnesium 2.2 mg/dL (1.9-2.7); Potassium 4.4 mmol/L (3.5-5.0); eGFR CKD-EPI 107.1 (>60)
[2023-08-18] MEDS: Acetaminophen IV 1 GM/100ML 1,000 MG/100 ML BAG IV PRN (15:58)
[2023-08-19 06:07] LABS: ABS Eosinophils 0.1 10^3/uL (0.0-0.5); ABS Lymphocytes 0.5 10^3/uL (1.0-4.8); ABS Monocytes 0.7 10^3/uL (0.0-1.1); ABS Neutrophils 7.6 10^3/uL (1.5-7.6); Eosinophil % 1.1 %; Hematocrit 30.7 % (38-53); Hemoglobin 10.5 g/dL (13.2-16.3); Lymphocyte % 5.3 %; Mean Corpuscular Hgb Conc 34.2 g/dL (31-36); Mean Corpuscular Volume 93.4 fL (80-97); Mean Platelet Volume 7.7 fL (7.5-11.2); Platelet Count 572 10^3/uL (150-450); Red Blood Count 3.29 10^6/uL (4.06-5.63); Red Cell Distribution Width 13.8 % (12-17); White Blood Count 8.9 10^3/uL (3.6-10.2)
[2023-08-19 06:27] LABS: Calcium 8.2 mg/dL (8.6-10.3); Creatinine, Serum 0.42 mg/dL (0.67-1.17); Magnesium 2.2 mg/dL (1.9-2.7); Phosphorus 3.1 mg/dL (2.5-5.0)
[2023-08-19] MEDS: NS 0.9% 500 ml BAG 500 ML IV ONE (12:15)
[2023-08-19] MEDS ORDERED: Zosyn per Pharmacy NOTE FOLLOW UP SCH (13:00)
[2023-08-19] MEDS ORDERED: Lorazepam PYXIS KEY PRN (13:30)
[2023-08-19] MEDS: NS 0.9% 1000 ml BAG 1,000 ML IV SCH (13:34)
[2023-08-19] MEDS: Piperacillin/Tazobac 3.375 BAG 3.375 GM/100 ML BAG IV ONE (13:50)
[2023-08-19] MEDS: LORazepam 2 mg VIAL 1 ml IV PUSH ONE (14:33)
[2023-08-19] MEDS: ZOSYN 3.375 GM Q8H per EXTENDED INFUSION IV SCH (18:03)
[2023-08-19 18:27] LABS: Urine Appearance Cloudy; Urine Bilirubin Negative (Negative); Urine Blood Negative (Negative); Urine Color Yellow; Urine Glucose Negative (Negative); Urine Ketones Trace (Negative); Urine Nitrite Negative (Negative); Urine Protein 1+(30 mg/dL) (Negative); Urine Specific Gravity 1.024 (1.002-1.030); Urine Urobilinogen Positive (Negative)
[2023-08-19 18:36] LABS: Urine Bacteria Absent (Absent); Urine Red Blood Cell 2+(6-10/hpf) (Absent); Urine White Blood Cell Absent (Absent)
[2023-08-20] MEDS: Midazolam 5 mg/5 ml VIAL 1 mg/ml 5 ml VIAL (5 mg) IV SLOW PU ONE (01:39)
[2023-08-20 02:06] LABS: Resp Rate 16
[2023-08-20 02:07] LABS: PCO2 Arterial 47 mmHg (35-45); PO2 Arterial 140 mmHg (80-100)
[2023-08-20] MEDS: Dexmedetomidine 1,000 MCG in NS 0.9% 250 ml 240 ML IV SCH (02:07)
[2023-08-20] MEDS: Midazolam 5 mg/5 ml VIAL 1 mg/ml 5 ml VIAL (5 mg) ONE (02:10)
[2023-08-20] MEDS ORDERED: Dexmedetomidine 1,000 MCG in NS 0.9% 250 ml 240 ML IV SCH (02:16)
[2023-08-20 02:18] LABS: Hematocrit 28.8 % (38-53); Hemoglobin 9.8 g/dL (13.2-16.3); Mean Corpuscular Hgb Conc 34.1 g/dL (31-36); Mean Platelet Volume 7.4 fL (7.5-11.2); Platelet Count 544 10^3/uL (150-450); Red Blood Count 3.07 10^6/uL (4.06-5.63); White Blood Count 9.1 10^3/uL (3.6-10.2)
[2023-08-20] MEDS: Furosemide 40 mg/4 ml IV VIAL IV ONE (02:26)
[2023-08-20 02:38] LABS: Albumin 2.7 g/dL (3.2-5.2); Albumin/Globulin Ratio 0.8 (1-3); Creatinine, Serum 0.5 mg/dL (0.67-1.17); Globulin 3.5 g/dL (2-4); Potassium 3.6 mmol/L (3.5-5.0); Total Bilirubin 0.5 mg/dL (0.2-1.0); Total Protein 6.2 g/dL (6.4-8.9); eGFR CKD-EPI 104.4 (>60)
[2023-08-20] MEDS: Chlorhexidine MOUTHWASH 0.12% 15 ML UDC TOPICAL SCH (03:12)
[2023-08-20] MEDS: Midazolam PREMIXBAG 1 MG/ML NS 100 ML IV SCH (04:20)
[2023-08-20] MEDS: Midazolam 2 mg/2 ml VIAL 1 mg/ml 2 ml VIAL (2 mg) IV SLOW PU PRN (04:54)
[2023-08-20 05:18] LABS: ABS Lymphocytes 0.4 10^3/uL (1.0-4.8); ABS Monocytes 0.5 10^3/uL (0.0-1.1); ABS Neutrophils 8.1 10^3/uL (1.5-7.6); Eosinophil % 0.4 %; Hematocrit 28.5 % (38-53); Hemoglobin 9.8 g/dL (13.2-16.3); Lymphocyte % 4.4 %; Mean Corpuscular Hemoglobin 32.2 pg (27-33); Mean Corpuscular Hgb Conc 34.6 g/dL (31-36); Mean Corpuscular Volume 93.1 fL (80-97); Mean Platelet Volume 7.8 fL (7.5-11.2); Platelet Count 558 10^3/uL (150-450); Red Blood Count 3.06 10^6/uL (4.06-5.63); Red Cell Distribution Width 13.9 % (12-17); White Blood Count 9.1 10^3/uL (3.6-10.2)
[2023-08-20 05:36] LABS: Calcium 8.1 mg/dL (8.6-10.3); Creatinine, Serum 0.43 mg/dL (0.67-1.17); Potassium 3.9 mmol/L (3.5-5.0); eGFR CKD-EPI 109.3 (>60)
[2023-08-20] MEDS: fentaNYL 100 mcg/2 ml 50 MCG/ML VIAL IV SLOW PU PRN (07:40)
[2023-08-20] MEDS: fentaNYL 100 mcg/2 ml 50 MCG/ML VIAL ONE (07:40)
[2023-08-20] MEDS: Midazolam 10 mg/10 ml VIAL 1 mg/ml 10 ml VIAL (10 mg) IV SLOW PU PRN (07:50)
[2023-08-20] MEDS: fentaNYL INFUSION 50 mcg/mL VL 2,500 MCG/50 ML VIAL IV SCH (07:58)
[2023-08-20] MEDS: Rocuronium 50 mg VIAL 10 mg/ml 5 ml VIAL (50 mg) IV ONE (08:05)
[2023-08-20] MEDS: Pantoprazole VIAL 40 MG VIAL IV SCH (09:02)
[2023-08-21 04:02] LABS: ABS Basophils 0.1 10^3/uL (0.0-0.1); ABS Eosinophils 0.2 10^3/uL (0.0-0.5); ABS Lymphocytes 0.8 10^3/uL (1.0-4.8); ABS Monocytes 0.5 10^3/uL (0.0-1.1); ABS Neutrophils 5.5 10^3/uL (1.5-7.6); ABS Nucleated RBC 0.01 10^3/ul; Eosinophil % 2.9 %; Hemoglobin 9.3 g/dL (13.2-16.3); Lymphocyte % 11.3 %; Mean Corpuscular Hgb Conc 34.5 g/dL (31-36); Mean Corpuscular Volume 92.8 fL (80-97); Mean Platelet Volume 7.3 fL (7.5-11.2); Nucleated Red Blood Cells % 0.1 %/100WBC (0.0-0.8); Platelet Count 513 10^3/uL (150-450); Red Blood Count 2.91 10^6/uL (4.06-5.63); White Blood Count 7.1 10^3/uL (3.6-10.2)
[2023-08-21 04:18] LABS: Calcium 7.7 mg/dL (8.6-10.3); Creatinine, Serum 0.49 mg/dL (0.67-1.17); Magnesium 2.1 mg/dL (1.9-2.7); Potassium 3.3 mmol/L (3.5-5.0)
[2023-08-21] MEDS: KCL 20 MEQ/100 ML IVPREMIX 20 MEQ/100 ML BAG IV SCH (04:31)
[2023-08-21] MEDS: KCL 20 MEQ/100 ML IVPREMIX 40 MEQ/200 ML BAG ONE (04:33)
[2023-08-22 04:18] LABS: ABS Eosinophils 0.4 10^3/uL (0.0-0.5); ABS Lymphocytes 0.5 10^3/uL (1.0-4.8); ABS Monocytes 0.6 10^3/uL (0.0-1.1); ABS Neutrophils 5.4 10^3/uL (1.5-7.6); Hematocrit 26.9 % (38-53); Hemoglobin 9.1 g/dL (13.2-16.3); Lymphocyte % 7.7 %; Mean Corpuscular Hemoglobin 31.9 pg (27-33); Mean Corpuscular Hgb Conc 33.9 g/dL (31-36); Mean Corpuscular Volume 94.2 fL (80-97); Mean Platelet Volume 7.4 fL (7.5-11.2); Platelet Count 473 10^3/uL (150-450); Red Blood Count 2.86 10^6/uL (4.06-5.63); Red Cell Distribution Width 14.4 % (12-17)
[2023-08-22 04:23] LABS: Calcium 7.3 mg/dL (8.6-10.3); Creatinine, Serum 0.48 mg/dL (0.67-1.17); Magnesium 1.9 mg/dL (1.9-2.7); Potassium 3.4 mmol/L (3.5-5.0); eGFR CKD-EPI 105.7 (>60)
[2023-08-22] MEDS: KCL 20 MEQ/100 ML IVPREMIX 20 MEQ/100 ML BAG IV SCH (04:30)
[2023-08-22] MEDS: KCL 20 MEQ/100 ML IVPREMIX 40 MEQ/200 ML BAG ONE (04:40)
[2023-08-23 04:49] LABS: ABS Basophils 0.1 10^3/uL (0.0-0.1); ABS Eosinophils 0.3 10^3/uL (0.0-0.5); ABS Lymphocytes 0.6 10^3/uL (1.0-4.8); ABS Monocytes 0.7 10^3/uL (0.0-1.1); ABS Neutrophils 6.2 10^3/uL (1.5-7.6); Eosinophil % 4.3 %; Hematocrit 29.1 % (38-53); Hemoglobin 9.8 g/dL (13.2-16.3); Mean Corpuscular Hemoglobin 31.4 pg (27-33); Mean Corpuscular Hgb Conc 33.5 g/dL (31-36); Mean Corpuscular Volume 93.7 fL (80-97); Mean Platelet Volume 7.5 fL (7.5-11.2); Platelet Count 424 10^3/uL (150-450); Red Cell Distribution Width 14.3 % (12-17)
[2023-08-23 05:05] LABS: Creatinine, Serum 0.47 mg/dL (0.67-1.17); Potassium 3.9 mmol/L (3.5-5.0); eGFR CKD-EPI 106.4 (>60)
[2023-08-24 04:30] LABS: ABS Basophils 0.1 10^3/uL (0.0-0.1); ABS Eosinophils 0.4 10^3/uL (0.0-0.5); ABS Lymphocytes 0.6 10^3/uL (1.0-4.8); ABS Monocytes 0.7 10^3/uL (0.0-1.1); ABS Neutrophils 6.2 10^3/uL (1.5-7.6); Eosinophil % 4.6 %; Hematocrit 28.2 % (38-53); Hemoglobin 9.6 g/dL (13.2-16.3); Mean Corpuscular Hemoglobin 31.9 pg (27-33); Mean Corpuscular Hgb Conc 34.2 g/dL (31-36); Mean Corpuscular Volume 93.3 fL (80-97); Mean Platelet Volume 7.6 fL (7.5-11.2); Nucleated Red Blood Cells % 0.1 %/100WBC (0.0-0.8); Platelet Count 389 10^3/uL (150-450); Red Blood Count 3.02 10^6/uL (4.06-5.63); Red Cell Distribution Width 14.3 % (12-17)
[2023-08-24 04:41] LABS: Calcium 7.8 mg/dL (8.6-10.3); Creatinine, Serum 0.48 mg/dL (0.67-1.17); Potassium 3.7 mmol/L (3.5-5.0); eGFR CKD-EPI 105.7 (>60)
[2023-08-24] MEDS: Potassium Chloride LIQUID 20 MEQ/15 ML LIQUID PO ONE (07:59)
[2023-08-25 04:50] LABS: ABS Eosinophils 0.4 10^3/uL (0.0-0.5); ABS Lymphocytes 0.5 10^3/uL (1.0-4.8); ABS Monocytes 0.6 10^3/uL (0.0-1.1); Eosinophil % 5.2 %; Hematocrit 28.1 % (38-53); Hemoglobin 9.5 g/dL (13.2-16.3); Lymphocyte % 6.9 %; Mean Corpuscular Hemoglobin 31.4 pg (27-33); Mean Corpuscular Hgb Conc 33.8 g/dL (31-36); Mean Corpuscular Volume 93.1 fL (80-97); Mean Platelet Volume 7.9 fL (7.5-11.2); Nucleated Red Blood Cells % 0.1 %/100WBC (0.0-0.8); Platelet Count 376 10^3/uL (150-450); Red Blood Count 3.02 10^6/uL (4.06-5.63); Red Cell Distribution Width 14.6 % (12-17); White Blood Count 7.5 10^3/uL (3.6-10.2)
[2023-08-25 05:19] LABS: Anion Gap 9 mmol/L (2-16); Blood Urea Nitrogen 15 mg/dL (6-24); CO2 Carbon Dioxide 28 mmol/L (22-32); Calcium 7.7 mg/dL (8.6-10.3); Chloride 100 mmol/L (101-111); Creatinine, Serum 0.53 mg/dL (0.67-1.17); Glucose 118 mg/dL (70-100); Sodium 137 mmol/L (135-145); eGFR CKD-EPI 102.6 (>60)
[2023-08-26 04:26] LABS: Hematocrit 23.1 % (38-53); Mean Corpuscular Hemoglobin 32.4 pg (27-33); Mean Corpuscular Hgb Conc 34.5 g/dL (31-36); Mean Corpuscular Volume 93.8 fL (80-97); Mean Platelet Volume 7.9 fL (7.5-11.2); Platelet Count 324 10^3/uL (150-450); Red Blood Count 2.47 10^6/uL (4.06-5.63); Red Cell Distribution Width 14.4 % (12-17); White Blood Count 8.1 10^3/uL (3.6-10.2)
[2023-08-26 04:36] LABS: INR 1.3 (0.83-1.13)
[2023-08-26 04:47] LABS: Anion Gap 9 mmol/L (2-16); Blood Urea Nitrogen 11 mg/dL (6-24); CO2 Carbon Dioxide 27 mmol/L (22-32); Calcium 7.3 mg/dL (8.6-10.3); Chloride 102 mmol/L (101-111); Creatinine, Serum 0.38 mg/dL (0.67-1.17); Glucose 95 mg/dL (70-100); Sodium 138 mmol/L (135-145); eGFR CKD-EPI 113.4 (>60)
[2023-08-26 05:33] LABS: ABS Eosinophils 0.4 10^3/uL (0.0-0.5); ABS Lymphocytes 0.7 10^3/uL (1.0-4.8); ABS Monocytes 0.7 10^3/uL (0.0-1.1); ABS Neutrophils 6.3 10^3/uL (1.5-7.6); Burr Cells 1+; Eosinophil % 4.4 %; Lymphocyte % 8.1 %
[2023-08-27 04:37] LABS: ABS Eosinophils 0.3 10^3/uL (0.0-0.5); ABS Lymphocytes 0.5 10^3/uL (1.0-4.8); ABS Monocytes 0.7 10^3/uL (0.0-1.1); ABS Neutrophils 5.9 10^3/uL (1.5-7.6); Eosinophil % 4.7 %; Hematocrit 28.5 % (38-53); Hemoglobin 9.6 g/dL (13.2-16.3); Lymphocyte % 7.1 %; Mean Corpuscular Hemoglobin 31.5 pg (27-33); Mean Corpuscular Hgb Conc 33.8 g/dL (31-36); Mean Corpuscular Volume 93.3 fL (80-97); Mean Platelet Volume 8.1 fL (7.5-11.2); Platelet Count 379 10^3/uL (150-450); Red Blood Count 3.05 10^6/uL (4.06-5.63); Red Cell Distribution Width 14.6 % (12-17); White Blood Count 7.4 10^3/uL (3.6-10.2)
[2023-08-27 04:51] LABS: Calcium 8.2 mg/dL (8.6-10.3); Creatinine, Serum 0.45 mg/dL (0.67-1.17); Magnesium 2.2 mg/dL (1.9-2.7); eGFR CKD-EPI 107.8 (>60)
[2023-08-27] MEDS: Metoprolol Tartrate 5 mg VIAL 5 ml VIAL (1 mg/ml) IV ONE (23:09)
[2023-08-28 11:55] LABS: C Reactive Protein 106.38 mg/L (<8.01)
[2023-08-30 06:47] LABS: Hematocrit 29.8 % (38-53); Mean Corpuscular Hemoglobin 31.4 pg (27-33); Mean Corpuscular Hgb Conc 33.4 g/dL (31-36); Mean Corpuscular Volume 93.9 fL (80-97); Platelet Count 332 10^3/uL (150-450); Red Blood Count 3.17 10^6/uL (4.06-5.63); Red Cell Distribution Width 14.4 % (12-17); White Blood Count 7.7 10^3/uL (3.6-10.2)
[2023-08-30 07:32] LABS: Calcium 7.8 mg/dL (8.6-10.3); Creatinine, Serum 0.37 mg/dL (0.67-1.17); eGFR CKD-EPI 114.3 (>60)
[2023-08-31] MEDS ORDERED: Senna TAB 8.6 mg TAB G TUBE PRN (05:47)
[2023-09-01] MEDS: Magnesium Hydroxide LIQ 30 ML UDC G TUBE PRN (00:51)
[2023-09-01] MEDS: Docusate LIQ 100 MG/10 ML UDC G TUBE PRN (00:51)
[2023-09-01 06:02] LABS: ABS Eosinophils 0.3 10^3/uL (0.0-0.5); ABS Lymphocytes 0.5 10^3/uL (1.0-4.8); ABS Monocytes 0.7 10^3/uL (0.0-1.1); ABS Neutrophils 4.9 10^3/uL (1.5-7.6); Eosinophil % 4.5 %; Hematocrit 28.5 % (38-53); Hemoglobin 9.5 g/dL (13.2-16.3); Lymphocyte % 8.3 %; Mean Corpuscular Hemoglobin 31.3 pg (27-33); Mean Corpuscular Hgb Conc 33.4 g/dL (31-36); Mean Corpuscular Volume 93.8 fL (80-97); Mean Platelet Volume 8.1 fL (7.5-11.2); Platelet Count 374 10^3/uL (150-450); Red Blood Count 3.04 10^6/uL (4.06-5.63); Red Cell Distribution Width 14.2 % (12-17); White Blood Count 6.4 10^3/uL (3.6-10.2)
[2023-09-01 06:14] LABS: C Reactive Protein 105.07 mg/L (<8.01); Creatinine, Serum 0.38 mg/dL (0.67-1.17); Potassium 4.1 mmol/L (3.5-5.0); eGFR CKD-EPI 113.4 (>60)
[2023-09-01] MEDS ORDERED: Labetalol IV 5 MG/ML 20 ml VIAL ONE (13:20)
[2023-09-01] MEDS ORDERED: Naloxone 0.4 mg VIAL 0.4 mg/ml 1 ml VIAL IV PRN (13:51)
[2023-09-01] MEDS ORDERED: HYDROmorphone 1 MG/1 ML SYRINGE IV PRN (13:51)
[2023-09-01] MEDS: Acetaminophen IV 1 GM/100ML 1,000 MG/100 ML BAG IV ONE (16:42)
[2023-09-01] MEDS ORDERED: Albuterol/Ipratropium NEB.SOL (2.5/0.5 MG) 3 ML NEB.SOLN INH SCH (18:00)
[2023-09-01] MEDS ORDERED: Albuterol/Ipratropium NEB.SOL (2.5/0.5 MG) 3 ML NEB.SOLN INH PRN (18:00)
[2023-09-02 05:36] LABS: ABS Eosinophils 0.2 10^3/uL (0.0-0.5); ABS Lymphocytes 0.4 10^3/uL (1.0-4.8); ABS Monocytes 0.5 10^3/uL (0.0-1.1); ABS Neutrophils 5.1 10^3/uL (1.5-7.6); Eosinophil % 3.7 %; Hematocrit 26.9 % (38-53); Lymphocyte % 6.8 %; Mean Corpuscular Hemoglobin 31.3 pg (27-33); Mean Corpuscular Hgb Conc 33.6 g/dL (31-36); Mean Corpuscular Volume 93.1 fL (80-97); Mean Platelet Volume 7.8 fL (7.5-11.2); Platelet Count 359 10^3/uL (150-450); Red Blood Count 2.89 10^6/uL (4.06-5.63); Red Cell Distribution Width 14.4 % (12-17); White Blood Count 6.4 10^3/uL (3.6-10.2)
[2023-09-02 05:50] LABS: Calcium 7.6 mg/dL (8.6-10.3); Creatinine, Serum 0.43 mg/dL (0.67-1.17); Potassium 3.9 mmol/L (3.5-5.0); eGFR CKD-EPI 109.3 (>60)
[2023-09-02] MEDS ORDERED: Albuterol/Ipratropium NEB.SOL (2.5/0.5 MG) 3 ML NEB.SOLN INH PRN (10:37)
[2023-09-02] MEDS ORDERED: Polyethylene Glycol 3350 17 GM PACKET PO PRN (10:58)
[2023-09-02] MEDS ORDERED: Albuterol/Ipratropium NEB.SOL (2.5/0.5 MG) 3 ML NEB.SOLN INH SCH (13:00)
[2023-09-02] MEDS: Enoxaparin 40 MG/0.4 ML SYR SUBCUT SCH (20:57)
[2023-09-03] MEDS: cefTRIAXone 1 gm/50 mL D5W 1 GM/50 ML BAG IV SCH (10:08)
[2023-09-03] MEDS: DOXYcycline 100 MG in NS 0.9% 250 ml 250 ML IVPB SCH (11:10)
[2023-09-05 06:08] LABS: ABS Basophils 0.1 10^3/uL (0.0-0.1); ABS Eosinophils 0.1 10^3/uL (0.0-0.5); ABS Lymphocytes 0.7 10^3/uL (1.0-4.8); ABS Monocytes 0.5 10^3/uL (0.0-1.1); ABS Nucleated RBC 0.01 10^3/ul; Eosinophil % 1.6 %; Hematocrit 31.4 % (38-53); Hemoglobin 10.6 g/dL (13.2-16.3); Lymphocyte % 8.7 %; Mean Corpuscular Hemoglobin 31.3 pg (27-33); Mean Corpuscular Hgb Conc 33.8 g/dL (31-36); Mean Corpuscular Volume 92.6 fL (80-97); Mean Platelet Volume 8.2 fL (7.5-11.2); Nucleated Red Blood Cells % 0.1 %/100WBC (0.0-0.8); Platelet Count 433 10^3/uL (150-450); Red Blood Count 3.39 10^6/uL (4.06-5.63); Red Cell Distribution Width 14.4 % (12-17); White Blood Count 8.4 10^3/uL (3.6-10.2)
[2023-09-05 06:27] LABS: Calcium 8.2 mg/dL (8.6-10.3); Creatinine, Serum 0.35 mg/dL (0.67-1.17); Magnesium 2.1 mg/dL (1.9-2.7); eGFR CKD-EPI 116.3 (>60)
[2023-09-06] MEDS: methylPREDNISolone SOD SUCC 125 mg 2 ML VIAL IV ONE (13:15)
[2023-09-06] MEDS: Furosemide 20 mg/2 ml IV VIAL IV ONE (13:20)
[2023-09-06] MEDS: Albuterol/Ipratropium NEB.SOL (2.5/0.5 MG) 3 ML NEB.SOLN INH PRN (13:33)
[2023-09-06] MEDS: EPINEPHrine,Rac 2.25% NEB.SOL 0.5 ML INH ONE (13:34)
[2023-09-06] MEDS: Albuterol/Ipratropium NEB.SOL (2.5/0.5 MG) 3 ML NEB.SOLN ONE (13:34)
[2023-09-06] MEDS: methylPREDNISolone SOD SUCC 125 mg 2 ML VIAL ONE (14:14)
[2023-09-06] MEDS: Morphine 4 MG/ML VIAL (1 ml) ONE (14:20)
[2023-09-06] MEDS: Furosemide 20 mg/2 ml IV VIAL IV SCH (17:56)
[2023-09-06] MEDS: methylPREDNISolone SOD SUCC 40 mg/ml 1 ml VIAL IV SCH (17:56)
[2023-09-07 06:54] LABS: ABS Lymphocytes 0.5 10^3/uL (1.0-4.8); ABS Monocytes 0.3 10^3/uL (0.0-1.1); ABS Neutrophils 5.8 10^3/uL (1.5-7.6); ABS Nucleated RBC 0.01 10^3/ul; Hematocrit 34.9 % (38-53); Hemoglobin 11.7 g/dL (13.2-16.3); Lymphocyte % 7.3 %; Mean Corpuscular Hemoglobin 31.1 pg (27-33); Mean Corpuscular Hgb Conc 33.6 g/dL (31-36); Mean Corpuscular Volume 92.5 fL (80-97); Mean Platelet Volume 7.9 fL (7.5-11.2); Nucleated Red Blood Cells % 0.1 %/100WBC (0.0-0.8); Platelet Count 529 10^3/uL (150-450); Red Blood Count 3.77 10^6/uL (4.06-5.63); Red Cell Distribution Width 14.3 % (12-17); White Blood Count 6.6 10^3/uL (3.6-10.2)
[2023-09-07 07:10] LABS: Calcium 8.7 mg/dL (8.6-10.3); Creatinine, Serum 0.47 mg/dL (0.67-1.17); Magnesium 2.1 mg/dL (1.9-2.7); Phosphorus 3.1 mg/dL (2.5-5.0); Potassium 4.3 mmol/L (3.5-5.0); eGFR CKD-EPI 106.4 (>60)
[2023-09-07] MEDS: Furosemide 20 mg/2 ml IV VIAL IV SCH (21:11)
[2023-09-08 06:12] LABS: ABS Basophils 0.1 10^3/uL (0.0-0.1); ABS Lymphocytes 0.5 10^3/uL (1.0-4.8); ABS Monocytes 0.4 10^3/uL (0.0-1.1); ABS Neutrophils 11.1 10^3/uL (1.5-7.6); Hematocrit 33.9 % (38-53); Hemoglobin 11.2 g/dL (13.2-16.3); Lymphocyte % 3.8 %; Mean Corpuscular Hemoglobin 30.8 pg (27-33); Mean Corpuscular Hgb Conc 33.2 g/dL (31-36); Mean Corpuscular Volume 92.8 fL (80-97); Platelet Count 502 10^3/uL (150-450); Red Blood Count 3.66 10^6/uL (4.06-5.63); Red Cell Distribution Width 14.7 % (12-17); White Blood Count 12.1 10^3/uL (3.6-10.2)
[2023-09-08 06:30] LABS: Calcium 8.6 mg/dL (8.6-10.3); Creatinine, Serum 0.44 mg/dL (0.67-1.17); Potassium 3.9 mmol/L (3.5-5.0); eGFR CKD-EPI 108.5 (>60)
[2023-09-09 06:49] LABS: ABS Basophils 0.1 10^3/uL (0.0-0.1); ABS Lymphocytes 0.7 10^3/uL (1.0-4.8); ABS Monocytes 0.6 10^3/uL (0.0-1.1); ABS Nucleated RBC 0.01 10^3/ul; Hematocrit 37.5 % (38-53); Hemoglobin 12.5 g/dL (13.2-16.3); Lymphocyte % 6.6 %; Mean Corpuscular Hemoglobin 30.8 pg (27-33); Mean Corpuscular Hgb Conc 33.3 g/dL (31-36); Mean Corpuscular Volume 92.5 fL (80-97); Mean Platelet Volume 7.9 fL (7.5-11.2); Platelet Count 547 10^3/uL (150-450); Red Blood Count 4.05 10^6/uL (4.06-5.63); Red Cell Distribution Width 14.5 % (12-17); White Blood Count 10.4 10^3/uL (3.6-10.2)
[2023-09-09 07:57] LABS: Calcium 8.5 mg/dL (8.6-10.3); Creatinine, Serum 0.45 mg/dL (0.67-1.17); Magnesium 2.2 mg/dL (1.9-2.7); Phosphorus 2.9 mg/dL (2.5-5.0); Potassium 4.2 mmol/L (3.5-5.0); eGFR CKD-EPI 107.8 (>60)
[2023-09-09] MEDS: methylPREDNISolone SOD SUCC 40 mg/ml 1 ml VIAL IV SCH (20:48)
[2023-09-12] MEDS: methylPREDNISolone SOD SUCC 40 mg/ml 1 ml VIAL IV SCH (10:17)
[2023-09-15 05:59] LABS: ABS Eosinophils 0.2 10^3/uL (0.0-0.5); ABS Lymphocytes 1.2 10^3/uL (1.0-4.8); ABS Monocytes 0.8 10^3/uL (0.0-1.1); ABS Neutrophils 9.9 10^3/uL (1.5-7.6); Eosinophil % 1.6 %; Hematocrit 33.7 % (38-53); Lymphocyte % 9.8 %; Mean Corpuscular Hemoglobin 30.4 pg (27-33); Mean Corpuscular Hgb Conc 32.7 g/dL (31-36); Mean Corpuscular Volume 93.2 fL (80-97); Mean Platelet Volume 8.3 fL (7.5-11.2); Platelet Count 392 10^3/uL (150-450); Red Blood Count 3.62 10^6/uL (4.06-5.63); Red Cell Distribution Width 14.9 % (12-17)
[2023-09-15 06:12] LABS: Creatinine, Serum 0.43 mg/dL (0.67-1.17); Magnesium 2.4 mg/dL (1.9-2.7); eGFR CKD-EPI 109.3 (>60)
[2023-09-16 08:50] LABS: ABS Basophils 0.1 10^3/uL (0.0-0.1); ABS Eosinophils 0.2 10^3/uL (0.0-0.5); ABS Lymphocytes 1.1 10^3/uL (1.0-4.8); ABS Neutrophils 11.5 10^3/uL (1.5-7.6); Eosinophil % 1.7 %; Hematocrit 34.8 % (38-53); Hemoglobin 11.5 g/dL (13.2-16.3); Lymphocyte % 7.8 %; Mean Corpuscular Hemoglobin 30.6 pg (27-33); Mean Corpuscular Hgb Conc 33.1 g/dL (31-36); Mean Corpuscular Volume 92.3 fL (80-97); Mean Platelet Volume 8.3 fL (7.5-11.2); Platelet Count 404 10^3/uL (150-450); Red Blood Count 3.76 10^6/uL (4.06-5.63); Red Cell Distribution Width 14.9 % (12-17); White Blood Count 13.9 10^3/uL (3.6-10.2)
[2023-09-16 09:19] LABS: Calcium 8.3 mg/dL (8.6-10.3); Creatinine, Serum 0.44 mg/dL (0.67-1.17); Potassium 4.1 mmol/L (3.5-5.0); eGFR CKD-EPI 108.5 (>60)
[2023-09-16] MEDS: Furosemide 20 mg/2 ml IV VIAL IV SCH (09:37)
[2023-09-16] MEDS: oxyCODONE 5 mg/5 ml ORAL.SOLN UDC NG TUBE SCH (15:07)
[2023-09-16] MEDS: Nystatin TOP POWDER 15 GM BTL TOPICAL SCH (21:52)
[2023-09-17] MEDS: oxyCODONE 5 mg/5 ml ORAL.SOLN UDC NG TUBE SCH (05:51)
[2023-09-17] MEDS: Morphine ORAL CONCENTRATE 5 MG/0.25 ML ORAL.SYRIN PO PRN (16:05)
[2023-09-17] MEDS: OLANZapine 5 mg TAB *ODT PO SCH (21:57)
[2023-09-17] MEDS: Citalopram SOLN ORALSYR 2 MG/ML PO SCH (22:15)
[2023-09-18] MEDS: Morphine ORAL CONCENTRATE 5 MG/0.25 ML ORAL.SYRIN SL SCH (10:48)
[2023-09-18] MEDS ORDERED: Morphine 2 MG/ML SYRINGE IV ONE (11:25)
[2023-09-18] MEDS: Morphine 2 MG/ML SYRINGE ONE (11:43)
[2023-09-19] MEDS: Atropine 1% (ORAL/SL) 15 ML BTL SL PRN (04:47)
[2023-09-19] MEDS: Morphine 2 MG/ML SYRINGE IV PRN (08:12)
[2023-09-21 22:26] VITALS: BP 123/110
[2023-09-23 09:26] LABS: Rapid COVID-19 Molecular Undetected (Undetected)
[2023-09-23 11:19] LABS: Tissue ID S24-1660-B
== END 2023-09-23 11:10 | disposition hospice, home (50) | DRG 4 ==
LOC: ED 07:55 → OR 10:11 → SUATTDRO 11:38 → ICU 11:38 → SSU 08-07 15:25 → ICU 08-20 01:58 → SSU 08-27 15:58 → ICU 09-01 16:43 → SSU 09-03 18:01
PROVIDERS: ADMIT Emergency Medicine; ATTEND Internal Medicine